=== PATIENT | female | born 1985 | race Native Hawaiian/Other Pacific Islander ===

== ENCOUNTER 2022-07-02 20:16 | Inpatient (IN) | payer OTHER ==
[~2022-07-02] VITALS: Ht 167.6 cm; Wt 127.3 kg
[2022-07-02] MEDS ORDERED: IPRATROPIUM BROMIDE 0.5 MG/2.5 ML NEB SOLUTION NEB ONE (22:30)
[2022-07-02] MEDS ORDERED: ALBUTEROL SULFATE 2.5 MG/0.5 ML NEB SOLUTION NEB ONE (22:30)
[2022-07-02] MEDS ORDERED: MethylPREDNISolone SOD SUCC 125 MG/2 ML VIAL IVP ONE (22:30)
[2022-07-02 23:04] LABS: BASOPHILS % (AUTO) 0.9 % (0.0-2.0); EOSINOPHILS % (AUTO) 2.2 % (1.0-6.0); HEMATOCRIT 46.1 % (36-46); HEMOGLOBIN 15.3 g/dL (12.0-16.0); LYMPHOCYTES # (AUTO) 2.9 K/uL (1.0-4.8); LYMPHOCYTES % (AUTO) 34.2 % (22.0-44.0); MEAN CORPUSCULAR HGB CONC 33.1 G/dL (31.0-37.0); MEAN CORPUSCULAR VOLUME 84 fL (80-100); MONOCYTES # (AUTO) 0.5 K/uL (0.1-1.0); MONOCYTES % (AUTO) 6.1 % (2.0-9.0); NEUTROPHILS # (AUTO) 4.8 K/uL (1.8-7.7); NEUTROPHILS % (AUTO) 56.6 % (40.0-70.0); PLATELET COUNT (AUTO) 185 K/uL (150-450); RED BLOOD CELL COUNT(AUTO) 5.47 MIL/uL (4.00-5.20); RED CELL DISTRIBUTION WIDTH 14.6 % (11.5-14.5)
[2022-07-02] MEDS ORDERED: ASPIRIN 325 MG TABLET PO ONE (23:15)
[2022-07-02 23:22] LABS: ANION GAP 11 mmol/L (8-16); CALCIUM, TOTAL 9.2 mg/dL (8.8-10.5); CARBON DIOXIDE 23 mmol/L (22-29); CHLORIDE 107 mmol/L (98-107); CREATININE 0.98 mg/dL (0.60-1.30); GLUCOSE,RANDOM 123 mg/dL (70-110); POTASSIUM 3.9 mmol/L (3.5-5.1); SODIUM SERUM 141 mmol/L (136-145); UREA NITROGEN, BLOOD 13 mg/dL (7-18)
[2022-07-02 23:23] LABS: COVID AG,FIA SOURCE NASOPHARYNGEAL
[2022-07-02 23:25] LABS: GLOMERULAR FILTR. RATE CALC > 60 mL/min (>60)
[2022-07-02 23:28] LABS: B-TYPE NATRIURETIC PEPTIDE 171 pg/mL (0-100)
[2022-07-02] MEDS ORDERED: SODIUM CHLORIDE 0.9% 1,000 ML IV ONE (23:30)
[2022-07-02 23:32] LABS: ALANINE AMINOTRANSFERASE 45 U/L (12-78); ALBUMIN 4.1 g/dL (3.4-5.0); ALKALINE PHOSPHATASE 72 U/L (46-116); ASPARTATE AMINOTRANSFERASE 19 U/L (15-37); BILIRUBIN,TOTAL 1.1 mg/dL (0.1-1.0); CREATINE KINASE, TOTAL ONLY 58 U/L (26-192); HCG,QUANTITATIVE < 1 mIU/mL (0-6)
[2022-07-02 23:43] LABS: MAGNESIUM 2.1 mg/dL (1.80-2.40); PHOSPHORUS 4.5 mg/dL (2.5-4.9)
[2022-07-02 23:46] LABS: INFLUENZA TYPE A NEGATIVE FOR TYPE A (NEGATIVE); INFLUENZA TYPE B NEGATIVE FOR TYPE B (NEGATIVE)
[2022-07-03 00:13] LABS: PROTHROMBIN TIME 10.9 SEC (9.4-11.6)
[2022-07-03] MEDS ORDERED: IOHEXOL 350 MG/ML 100 ML VIAL ONE (00:17)
[2022-07-03] MEDS ORDERED: SODIUM CHLORIDE 0.9% 100 ML ONE (00:17)
[2022-07-03] MEDS ORDERED: ACETAMINOPHEN 500 MG TABLET PO ONE (01:15)
[2022-07-03] MEDS ORDERED: HEPARIN SODIUM,PORCINE 5,000 UNITS/ML VIAL IVP PRN ×7 (01:30→15:00)
[2022-07-03] MEDS ORDERED: HEPARIN SODIUM 25000 UNITS/D5W 250 ML IV PRN ×2 (01:30)
[2022-07-03] MEDS ORDERED: HEPARIN SODIUM,PORCINE 5,000 UNITS/ML VIAL IVP ONE ×2 (01:30)
[2022-07-03] MEDS ORDERED: ONDANSETRON HCL 4 MG/2 ML VIAL IVP PRN ×2 (03:00→08:00)
[2022-07-03] MEDS ORDERED: 0.9% SODIUM CHLORIDE 10 ML SYRINGE IVP PRN (03:00)
[2022-07-03] MEDS ORDERED: ACETAMINOPHEN 325 MG TABLET PO PRN ×2 (03:00→08:00)
[2022-07-03] MEDS ORDERED: MORPHINE SULFATE 2 MG/ML SYRINGE IVP ONE (05:15)
[2022-07-03] MEDS ORDERED: FAMOTIDINE 10 MG/ML 2 ML VIAL IVP ONE (05:15)
[2022-07-03] MEDS ORDERED: OxyCODONE HCL/ACETAMINOPHEN 5-325 MG TABLET PO PRN (08:00)
[2022-07-03] MEDS: DOCUSATE SODIUM 100 MG CAPSULE PO SCH ×2 (08:14→20:27)
[2022-07-03] MEDS ORDERED: PANTOPRAZOLE SODIUM 40 MG DR TABLET PO SCH (09:00)
[2022-07-03 12:00] VITALS: BP 157/102
[2022-07-03 16:00] VITALS: BP 150/92
[2022-07-03] MEDS ORDERED: PANTOPRAZOLE SODIUM 40 MG DR TABLET PO ONE (17:45)
[2022-07-03 20:00] VITALS: BP 159/97
[2022-07-04] VITALS: BP 154/87
[2022-07-04] MEDS: HEPARIN SODIUM 25000 UNITS/D5W 250 ML IV PRN ×2 (03:20→16:44)
[2022-07-04 04:00] VITALS: BP 146/97
[2022-07-04 05:27] LABS: BASOPHILS % (AUTO) 0.7 % (0.0-2.0); HEMATOCRIT 42.9 % (36-46); HEMOGLOBIN 14.4 g/dL (12.0-16.0); LYMPHOCYTES # (AUTO) 3.7 K/uL (1.0-4.8); LYMPHOCYTES % (AUTO) 36.7 % (22.0-44.0); MEAN CORPUSCULAR HEMOGLOBIN 28.3 pg (26.0-34.0); MEAN CORPUSCULAR HGB CONC 33.4 G/dL (31.0-37.0); MEAN CORPUSCULAR VOLUME 85 fL (80-100); MONOCYTES # (AUTO) 0.6 K/uL (0.1-1.0); MONOCYTES % (AUTO) 5.6 % (2.0-9.0); NEUTROPHILS # (AUTO) 5.7 K/uL (1.8-7.7); PLATELET COUNT (AUTO) 184 K/uL (150-450); RED BLOOD CELL COUNT(AUTO) 5.07 MIL/uL (4.00-5.20); RED CELL DISTRIBUTION WIDTH 14.9 % (11.5-14.5)
[2022-07-04 05:43] LABS: ALANINE AMINOTRANSFERASE 44 U/L (12-78); ALBUMIN 3.6 g/dL (3.4-5.0); ALKALINE PHOSPHATASE 62 U/L (46-116); ANION GAP 12 mmol/L (8-16); ASPARTATE AMINOTRANSFERASE 25 U/L (15-37); BILIRUBIN,TOTAL 1.1 mg/dL (0.1-1.0); CALCIUM, TOTAL 8.7 mg/dL (8.8-10.5); CARBON DIOXIDE 24 mmol/L (22-29); CHLORIDE 104 mmol/L (98-107); CREATININE 0.75 mg/dL (0.60-1.30); GLUCOSE,RANDOM 135 mg/dL (70-110); POTASSIUM 3.3 mmol/L (3.5-5.1); SODIUM SERUM 140 mmol/L (136-145); TOTAL PROTEIN, SERUM 7.2 g/dL (6.4-8.2); UREA NITROGEN, BLOOD 12 mg/dL (7-18)
[2022-07-04 05:46] LABS: GLOMERULAR FILTR. RATE CALC > 60 mL/min (>60)
[2022-07-04 08:00] VITALS: BP 154/98
[2022-07-04] MEDS ORDERED: PANTOPRAZOLE SODIUM 40 MG DR TABLET PO SCH (09:00)
[2022-07-04] MEDS ORDERED: AmLODIPine BESYLATE 5 MG TABLET PO SCH (09:00)
[2022-07-04] MEDS: DOCUSATE SODIUM 100 MG CAPSULE PO SCH (09:00)
[2022-07-04 12:00] VITALS: BP 157/105
[2022-07-04 14:59] VITALS: BP 140/105
[2022-07-04] MEDS ORDERED: FLUTICASONE/VILANTEROL 200-25 MCG/INH INHALER [14] IH SCH (17:45)
[2022-07-04] MEDS ORDERED: AmLODIPine BESYLATE 5 MG TABLET PO ONE (18:15)
[2022-07-04] MEDS ORDERED: ALBUTEROL SULFATE 2.5 MG/0.5 ML NEB SOLUTION NEB SCH (19:00)
[2022-07-04] MEDS ORDERED: IPRATROPIUM BROMIDE 0.5 MG/2.5 ML NEB SOLUTION NEB SCH (19:00)
== END 2022-07-04 19:30 | disposition short-term general hospital (02) | DRG 176 ==
LOC: EMS 20:20 → ICU 07-03 03:44 → 5S 07-04 13:25
PROVIDERS: ADMIT Internal Medicine; ATTEND Internal Medicine
DX: I26.99 Other pulmonary embolism without acute cor pulmonale (principal); Z68.42 Body mass index [BMI] 45.0-49.9, adult; E66.01 Morbid (severe) obesity due to excess calories; I51.7 Cardiomegaly; J45.909 Unspecified asthma, uncomplicated; E66.9 Obesity, unspecified; Z20.822 Contact with and (suspected) exposure to COVID-19; I10 Essential (primary) hypertension; Z79.899 Other long term (current) drug therapy
CPT/HCPCS: 71275; 80053; 82550; 83735; 83880; 84100; 84484; 84702; 85025; 85379; 85610; 85730; 87081; 87804; 93005; 93306; 93970; 94060; 94640; 99291; G0378; J1644; J2270; J2930; J3490; J7050; Q9967